=== PATIENT | male | born 1990 | race Caucasian/White ===

== ENCOUNTER 2020-12-29 09:49 | Emergency (ER) | payer SELFPAY ==
[2020-12-29 10:25] VITALS: BP 141/82; PULSE 71; RESP 18; TEMP 37.2; O2SAT 98; BMI 26.7
--- NOTE | 2020-12-29 10:43 | HMH.EDUTC ---
[facility] [place] Impression: Upper respiratory infection, viral, COVID-19 virus test result unknown Disposition: Home, Self-Care Condition on Discharge: Good Instructions: DI for Viral Upper Respiratory Infection -- Adult Additional Instructions: covid swab was sent to lab, call later today for results. self isolate until test results are known to be negative No sign of a bacterial infection. Likely viral. Viruses can take 7-14 days to run their course. Nasal saline and bulb syringe or nose Amita to remove nasal drainage to help with nasal congestion. Hard to eat, drink, sleep with nasal congestion so important to keep this cleaned out. Monitor temp. Tylenol or Motrin as needed for pain or fever Encourage fluids, water, Gatorade, Powerade, Pedialyte if infant/toddler/child Warm salt water gargles Warm fluids Sore throat lozenges Sleep elevated Humidifier/vaporizer Follow-up immediately for new or worsening symptoms or no noticeable improvement over the next 48-72 hours. Referrals: Provider,Referral, MD [Primary Care Provider] - Time of Disposition: 10:47 Medical Decision Making - Tyrell Inquiry Pt receiving controlled substance: No Orders (Tests/Meds): ORDERS Category Date Time Status Covid-19 Nasal PCR ([facility]) Routine Lab 12/29/20 10:29 [place] [facility] [place] - General Chief complaint: [facility] Stated complaint: covid exposure and sympthoms Time Seen by Provider: 12/29/20 10:43 Mode of Arrival: Ambulatory Source of Information: Patient Limitations: No Limitations - History of Present Illness Provider Complaint: 30 yr old male presents for covid test. pt states for about a week he has had a runny nose, cough,congestion and lost of taste and smell. pt states symptoms have improved but still having lost of taste and cough [facility] History - Hepatitis A Screen Attestation statement:: This patient has been screened for Hepatitis A risk factors. I have reviewed the patient's past medical history: Yes ROS Obtained: Yes Systems reviewed as appropriate & no additional complaints - Constitutional Constitutional: Reports system reviewed and no additional complaints, except as docu, Denies fever(s) - Eyes Eyes: Reports system reviewed and no additional complaints, except as docu, Denies blurry vision - ENT Ears, Nose, Mouth, and Throat: Reports system reviewed and no additional complaints, except as docu, Reports as per HPI, Reports nasal congestion, Reports nasal discharge - Cardiovascular Cardiovascular: Reports system reviewed and no additional complaints, except as docu, Denies chest pain at rest - Respiratory Respiratory: Reports system reviewed and no additional complaints, except as docu, Denies change in phlegm color, Reports cough - Gastrointestinal Gastrointestingal: Reports: system reviewed and no additional complaints, except as docu. Denies: nausea, vomiting - Genitourinary Male Genitourinary: Reports system reviewed and no additional complaints, except as docu - Musculoskeletal Musculoskeletal: Reports system reviewed and no additional complaints, except as docu, Denies joint pain - Integumentary/Breasts Skin/Breast: Reports system reviewed and no additional complaints, except as docu, Denies new lesions - Neurologic Neurologic: Reports system reviewed and no additional complaints, except as docu, Denies dizziness - Endocrine Endocrine: Reports system reviewed and no additional complaints, except as docu, Denies fatigue - Hematologic/Lymphatic Henatologic/Lymphatic: Reports system reviewed and no additional complaints, except as docu, Denies lymphadenopathy - Allergic/Immunologic Allergic/Immunologic: Reports system reviewed and no additional complaints, except as docu, Denies itchy eyes Physical Exam - General General appearance: alert, in no apparent distress - Head Head exam: atraumatic, normocephalic, normal inspection - Eye Eye exam: Present: nor
[2020-12-29 10:47] VITALS: BP 141/82; PULSE 71; RESP 18; TEMP 37.2; O2SAT 98
== END 2020-12-29 10:50 | disposition home or self-care (01) ==
PROVIDERS: Emergency Provider Nurse Practitioner Family
DX: J06.9 Acute upper respiratory infection, unspecified (principal); Z20.822 Contact with and (suspected) exposure to COVID-19
CPT/HCPCS: 99202; C9803; G0463; U0003; U0005

== ENCOUNTER 2021-02-27 11:33 | Emergency (ER) | payer SELFPAY ==
[2021-02-27 13:00] VITALS: BP 131/84; PULSE 64; RESP 18; TEMP 36.6; O2SAT 98; BMI 25.8
--- NOTE | 2021-02-27 13:41 | HMH.EDUTC ---
[facility] [place] Impression: Vertigo Sinusitis Qualifiers: Sinusitis location: unspecified location Chronicity: unspecified Qualified Code(s): J32.9 - Chronic sinusitis, unspecified Disposition: Home, Self-Care Condition on Discharge: Good Instructions: Vertigo, Sinusitis, DI for Sinusitis, DI for Vertigo, Meclizine Additional Instructions: *Monitor Temp, Over the counter Motrin or Tylenol as directed/as needed Tylenol every 4 hours and Motrin every 6 hours (as long as your family doctor has told you that you can take it) for fever or pain. and straight to ER if unable to lower temp less than 101.0 after medication given *Warm salt water gargles may help to soothe the throat *Throat Lozenges *Warm fluids like tea with honey may help to soothe the throat *Sleep elevated *Humidifier/Vaporizer *Flonase 2 sprays in each nostril daily but be aware that it may take 2-3 days before you notice improvement Slow steady movements getting up out of bed and turning over Take medication as prescribed Follow up with Family Doctor if no improvement or any woresning of symptoms Straight to ER if any life threatening symptoms Follow up IMMEDIATELY for new or worsening symptoms or no Noticeable improvement over the next 48-72 hours. 911 for difficulty breathing or swallowing Prescriptions: Meclizine HCl [Meclizine 25mg Tab] 25 mg PO Q8HP PRN #15 tab PRN Reason: Vertigo Transmission Status: Received by [facility]/pharmacy #[id number] methylPREDNISolone [Medrol 4mg tab] 4 mg PO DIRECTED #21 tab Transmission Status: Received by [facility]/pharmacy #[id number] Azithromycin [Z-Quinn 250mg Tab] 250 mg PO DIRECTED #6 tab Transmission Status: Received by [facility]/pharmacy #[id number] Referrals: Provider,Referral, MD [Primary Care Provider] - As needed Forms: Work/School Release Time of Disposition: 14:08 Medical Decision Making - Tyrell Inquiry Pt receiving controlled substance: No Tyrell was queried for this patient: No Vital Signs: 02/27/21 13:00 02/27/21 14:21 Temperature 97.8 F 97.8 F Temperature Source Oral Pulse Rate 64 Pulse Rate [Right Brachial] 64 Respiratory Rate 18 18 Blood Pressure 131/84 Blood Pressure [Right Arm] 131/84 Blood Pressure Mean [Right Arm] 99 Blood Pressure Source [Right Arm] Automatic Cuff Blood Pressure Position [Right Arm] Sitting 02 Sat by Pulse Oximetry 98 Oxygen Delivery Method Room Air Orders (Tests/Meds): ED MEDICATIONS Discontinued Medications Generic Name Dose Route Start Last Admin Trade Name Gloria PRN Reason Stop Dose Admin Meclizine HCl 25 mg 02/27/21 13:42 02/27/21 13:48 Meclizine 25mg Tablet PO 02/27/21 13:43 25 mg ONCE ONE Administration Medical Decision Narrative: Discussed with patient and recommended transfer to the ED for further work up and evaluation and patient declined transfer at this time Will try Meclizine and see if he has any relief Patient state that after medication dizziness is much improved able to stand now without feeling like he is falling Patient rechecked and states feeling much better dizziness now gone and able to move around much better [facility] [place] General Stated complaint: dizzy, lightheaded, off balance Time Seen by Provider: 02/27/21 13:41 Mode of Arrival: Ambulatory Source of Information: Patient Limitations: No Limitations Description of Symptoms (Recalled from Triage Doc. by RN): PATIENT C/O DIZZINESS, LOSS OF BALANCE, HEADACHE, AND PRESSURE BEHIND EARS THAT STARTED YESTERDAY MORNING. HEENT Symptoms (Recalled from RN notes): Yes Resp Symptoms (Recalled from RN notes): No Skin Symptoms (Recalled from RN notes): No MS Symptoms (Recalled from RN notes): No Functional Status (Recalled from RN notes): WNL - History of Present Illness Provider Complaint: Patient states that he has been having sinus pain and pressure behind his eyes, feeling of pressure in his ears like he has fluid in there States that this morning he noticed when he
[2021-02-27 14:21] VITALS: BP 131/84; PULSE 64; RESP 18; TEMP 36.6; O2SAT 98
== END 2021-02-27 14:38 | disposition home or self-care (01) ==
PROVIDERS: Emergency Provider Nurse Practitioner
DX: J32.9 Chronic sinusitis, unspecified (principal)
CPT/HCPCS: 99202; G0463

== ENCOUNTER → 2021-05-03 14:21 | Outpatient (CLI) | payer OTHER, SELFPAY ==
[2021-05-03 15:22] LABS: Basophils # 0.1 K/mm3 (0-0.2); Basophils % 0.8 % (0.1-2.0); Eosinophils % 0.3 % (0.1-12.0); Hematocrit 47.5 % (42.0-52.0); Hemoglobin 17.2 g/dL (14.1-18.0); Lymphocytes # 5.6 K/mm3 (0.7-4.5); Lymphocytes % 96.8 % (10-50); Mean Corpuscular HGB Conc 36.2 g/dL (31.8-35.4); Mean Corpuscular Hemoglobin 32.6 pg (27.0-31.2); Mean Platelet Volume 7.8 fl (7.4-10.4); Monocytes % 0.1 % (1.7-9.3); Neutrophils # 0.1 K/mm3 (1.8-7.8); Platelet Count 279 K/mm3 (142-424); Red Blood Count 5.27 M/mm3 (4.60-6.20); Red Cell Distribution Width 12.4 % (11.5-17.5); White Blood Count 5.8 K/mm3 (4.8-10.8)
[2021-05-03 15:45] LABS: MANUAL DIFFERENTIAL MANUAL DIFFERENTIAL (MANUAL DIFF)
[2021-05-03 16:41] LABS: Strep Scrn Group A (Rapid) Negative (Negative)
[2021-05-03 18:13] LABS: Lymphocytes % 21 % (10-50); Monocytes % 4 % (2-9); Neutrophils % 75 % (42-76); Platelet Estimate Normal; RBC Morphology Normal; Total Cells Counted 100
== END ==
PROVIDERS: PCP Nurse Practitioner; Visit Provider Physician Assistant
DX: Z20.822 Contact with and (suspected) exposure to COVID-19 (principal); J02.9 Acute pharyngitis, unspecified
CPT/HCPCS: 36415; 85007; 85025; 87430; C9803; U0003; U0005

== ENCOUNTER → 2021-06-04 10:04 | Outpatient (CLI) | payer OTHER, SELFPAY ==
--- NOTE | 2021-06-04 10:05 | CA_ITS ---
APPROVED REPORT EXAM: Comprehensive 2D, Doppler, and color-flow Echocardiogram [employer]: Becca Muñoz RVT Ht: 5 ft 7 in Wt: 165lbs BSA: 1.86 BP: 132/65 mmHg Indications: PRE-SYNCOPE,DIZZINESS,FATIGUE 2D Dimensions LVOT 1.91 cm (M/F) 1.5-2.5 LA Volume 22.00 mL LA Volume Index 11.82 mL/m2 (M/F) 16-34 M-Mode Dimensions RVDd 2.11 cm (0.9-2.6) LA Diam 3.06 cm (1.9-4.0) LVDd 3.77 cm (3.5-5.7) Ao Diam 2.72 cm (2.0-3.7) LVDs 2.47 cm (3.5-5.7) IVSd 0.80 cm (0.6-1.1) PWd 0.88 cm (0.6-1.1) EF (Teich) 64.30% FS 34.50% EDV (Teich) 60.80 mL TAPSE 1.58 (<1.7) ESV (Teich) 21.70 mL LV Diastology E Decel Time 180.00 (160-240 msec) E/A Ratio 1.1 MED E' 10.60 (< 7 cm/sec) E'/MED E' Ratio 6.15 (>14) LAT E' 17.70 (<10 cm/sec) E/LAT E' Ratio 3.68 (>14) Aortic Valve AO Peak GR. 4.40 mmHg Mitral Valve MV E Max Иван. 65.00 (40-130 cm/s) MV A Velocity 58.00 (40-130 cm/s) E/A Ratio 1.12 MV Decel. Time 180.00 (160-240 ms) MV PHT 53.00 ms Pulmonary Valve PV Peak Velocity 68.00 (50-150 cm/s) Left Ventricle Left atrium normal size, left ventricular normal size, there is no concentric left ventricular hypertrophy, estimated ejection fraction 55% with no regional wall motion abnormality, diastolic parameters are within normal range. Right Ventricle Right atrium and right ventricle are normal size and contractility. Aortic Valve Aortic valve is grossly normal, there is no aortic stenosis or aortic insufficiency. Mitral Valve Mitral valve is grossly normal, there is trace mitral regurgitation. Tricuspid Valve Tricuspid valve grossly normal, there is trace tricuspid regurgitation. Tricuspid regurgitation jet velocity is inadequate for calculation of the right ventricular systolic pressure. Pulmonic Valve Pulmonic valve is poorly visualized. Great Vessels Aortic root is normal size. Inferior vena cava is poorly visualized. Pericardium No significant pericardial effusion noted. Conclusion 1. Normal left ventricular size, preserved left ventricular systolic function, visually estimated ejection fraction 55% with no regional wall motion abnormality, diastolic parameters are within normal range. 2. Trace mitral and tricuspid regurgitation. 3. No significant pericardial effusion. 4. Inferior vena cava is poorly visualized. Electronically signed by : Jose Isabel MD 06/04/2021 20:32:38
--- NOTE | 2021-06-04 10:48 | CT_ITS ---
FINAL REPORT TECHNIQUE: Multiple axial CT sections were performed from the foramen magnum to the vertex. Coronal reformatted images were also obtained. Precontrast and postcontrast injection images were obtained. This study was performed with technique to keep radiation doses as low as reasonably achievable, (ALARA). Individualized dose reduction techniques using automated exposure control or adjustment of mA and/or kV according to the patient size were employed. CLINICAL HISTORY: DIZZINESS,SYNCOPAL EPISODES,PALPITATIONS FINDINGS: The ventricles are normal in size. There is no evidence of hemorrhage. No masses are identified. No extra-axial fluid collection is seen. The sinuses are normal. No osseous abnormality is seen on the bone window images. Postcontrast images demonstrate no abnormal enhancement. IMPRESSION: Unremarkable CT of the head with and without contrast. Reviewed, Interpreted and Dictated by Frank Nobles III, MD Transcribed by Светлана Winters Authenticated by Frank Nobles III, MD on 06/04/2021 12:47:41 PM [facility]
== END ==
PROVIDERS: PCP Nurse Practitioner; Visit Provider Nurse Practitioner
DX: R42 Dizziness and giddiness (principal); R55 Syncope and collapse; R00.2 Palpitations
CPT/HCPCS: 70470; 93225; 93226; 93306; Q9967

== ENCOUNTER → 2021-07-01 08:26 | Outpatient (CLI) | payer OTHER, SELFPAY ==
[2021-07-01 08:46] LABS: Coronavirus 19, PCR Not Detected (NotDetected); Influenza A, PCR Not Detected (NotDetected); Influenza B, PCR Not Detected (NotDetected)
[2021-07-01 09:29] LABS: Basophils # 0.1 K/mm3 (0-0.2); Basophils % 1.1 % (0.1-2.0); Eosinophils # 0.1 K/mm3 (0.0-0.4); Eosinophils % 1.3 % (0.1-12.0); Hematocrit 45.3 % (42.0-52.0); Hemoglobin 15.7 g/dL (14.1-18.0); Lymphocytes # 1.8 K/mm3 (0.7-4.5); Lymphocytes % 23.5 % (10-50); Mean Corpuscular HGB Conc 34.7 g/dL (31.8-35.4); Mean Corpuscular Hemoglobin 32.5 pg (27.0-31.2); Mean Corpuscular Volume 93.6 fl (80-94); Mean Platelet Volume 8.1 fl (7.4-10.4); Monocytes # 0.6 K/mm3 (0.1-1.0); Neutrophils # 5.2 K/mm3 (1.8-7.8); Platelet Count 267 K/mm3 (142-424); Red Blood Count 4.85 M/mm3 (4.60-6.20); Red Cell Distribution Width 12.8 % (11.5-17.5); White Blood Count 7.8 K/mm3 (4.8-10.8)
[2021-07-01 10:09] LABS: Alanine Aminotransferase 30 U/L (12-78); Albumin Level 4.5 g/dl (3.5-5.0); Alkaline Phosphatase 41 U/L (38-126); Aspartate Amino Transferase 26 U/L (17-59); Bilirubin,Indirect 1.1 mg/dL (0.0-0.9); Bilirubin,Total 1.1 mg/dl (0.2-1.3); Bilirubin,Unconjugated 1.2 mg/dL (0.0-1.1); Cholesterol 305 mg/dl (140-200); HDL Cholesterol 34 mg/dl (40-60); Total Protein,Serum 7.1 g/dl (6.3-8.2); Triglycerides 139 mg/dl (30-150); VLDL Cholesterol 28 mg/dL (0-40)
[2021-07-01 10:11] LABS: Anion Gap 10.2 mEq/L (5-15); Blood Urea Nitrogen 16 mg/dl (9-20); Calcium 9.7 mg/dl (8.4-10.2); Carbon Dioxide 33 mmol/L (22.0-30.0); Chloride 101 mmol/L (98-107); Estimated Glomerular Filt Rate 115 ml/min (>60); GFR (African American) 139 ML/MIN (>60); Glucose 61 mg/dl (74-100); Potassium 4.2 mmoL/L (3.5-5.1); Sodium 140 mmol/L (136-145)
== END ==
PROVIDERS: Internal Medicine; Visit Provider Physician Assistant
DX: Z01.812 Encounter for preprocedural laboratory examination (principal); Z11.52 Encounter for screening for COVID-19; R06.00 Dyspnea, unspecified; R42 Dizziness and giddiness; R55 Syncope and collapse; I20.0 Unstable angina; I49.3 Ventricular premature depolarization; R00.0 Tachycardia, unspecified; E78.5 Hyperlipidemia, unspecified; E78.2 Mixed hyperlipidemia
CPT/HCPCS: 36415; 80048; 80061; 80076; 85025; C9803; U0003; U0005

== ENCOUNTER 2021-07-02 07:57 | Day surgery (SDC) | payer OTHER, SELFPAY ==
[2021-07-02] VITALS (11 sets, daily range): BP systolic 94–126; BP diastolic 47–80; PULSE 56–80; RESP 18; TEMP 36.9; O2SAT 95–98; BMI 25.3
--- NOTE | 2021-07-02 07:10 | IR_ITS ---
APPROVED REPORT Patient Location: Outpatient Fur Cleaner: SUREKHA Narayanan RT (R) PROCEDURES Left heart catheterization Left ventriculogram Selective coronary angiogram INDICATION Crescendo angina, Familiar hyperlipidemia Informed consent was obtained prior to the procedure. COMPLICATIONS None Estimated Blood Loss: Less than 10 mls TECHNIQUE One percent lidocaine used to anesthetize the right anterior aspect of the wrist. The right radial artery was accessed via the Seldinger technique. A 6 Persian sheath was placed in the right radial artery. 2.5 mg of verapamil, 800 mcg of nitroglycerin, 1mg Lidocaine and 5000 U Heparin were given through the arterial sheath. The papa catheter was also used to perform left heart catheterization, left ventriculogram and selective coronary angiogram. At the end of the procedure the sheath was removed good hemostasis was achieved using Traclet band, patient was transferred to the postop holding area in stable condition. ANGIOGRAPHIC RESULTS The left main artery Normal The left anterior descending artery Normal The circumflex artery Normal The right coronary artery Dominant normal The DUPREE ventriculogram reveals Normal 65% The left ventricular end-diastolic pressure 10 mmHg IMPRESSION Normal coronary arteries Normal ejection fraction Normal left ventricular end-diastolic pressure PLAN 1. Treatment and evaluation of noncardiac symptoms 2. Aggressive treatment of familial hyperlipidemia Electronically signed by : Flash Claudio MD 07/02/2021 12:48:03
== END 2021-07-02 15:15 | disposition home or self-care (01) ==
LOC: CATHLAB 07:59
PROVIDERS: PCP Nurse Practitioner; Visit Provider Internal Medicine
DX: R07.9 Chest pain, unspecified (principal); I20.0 Unstable angina; I49.3 Ventricular premature depolarization; R06.00 Dyspnea, unspecified; E78.2 Mixed hyperlipidemia; R55 Syncope and collapse
CPT/HCPCS: 93458; 99152; C1725; C1769; J1644; Q9967

== ENCOUNTER → 2021-07-10 10:55 | Outpatient (CLI) | payer OTHER, SELFPAY ==
--- NOTE | 2021-07-10 11:02 | CA_ITS ---
FINAL REPORT CLINICAL HISTORY: PT HAD CATH 07/02/21 WITH RT RADIAL ACCESS,PT C/O PAIN IN WRIST RADIATING INTO HAND AND UP FOREARM,MILD BRUISING FINDINGS: DUPLEX SCAN UPPER EXT ARTERIES UNILA Duplex scan of the right wrist arteries was performed. Thrombus is seen right distal radial artery. No evidence of pseudoaneurysm or AV fistula. IMPRESSION: Thrombus seen right distal radial artery. Preliminary results were called to IVÁN Trujillo in cardiology clinic by the agricultural research technician at the time of imaging. Reviewed, Interpreted and Dictated by Frank Nobles III, MD Transcribed by Valerie Gil Authenticated by Frank Nobles III, MD on 07/10/2021 02:17:21 PM [facility]
== END ==
PROVIDERS: PCP Internal Medicine; Visit Provider Internal Medicine
DX: M25.531 Pain in right wrist (principal)
CPT/HCPCS: 93931

== ENCOUNTER → 2021-12-31 11:40 | Outpatient (CLI) | payer OTHER, SELFPAY ==
[2021-12-31 19:50] LABS: Alanine Aminotransferase 131 U/L (12-78); Albumin Level 4.9 g/dl (3.5-5.0); Albumin/Globulin Ratio 1.7 (1.1-1.8); Alkaline Phosphatase 67 U/L (38-126); Anion Gap 16.6 mEq/L (5-15); Aspartate Amino Transferase 68 U/L (17-59); Bilirubin,Total 1.5 mg/dl (0.2-1.3); Blood Urea Nitrogen 17 mg/dl (9-20); Calcium 10.4 mg/dl (8.4-10.2); Carbon Dioxide 30 mmol/L (22.0-30.0); Chloride 98 mmol/L (98-107); Estimated Glomerular Filt Rate 100 ml/min (>60); GFR (African American) 121 ML/MIN (>60); Globulin 2.9 g/dL (1.3-3.2); Glucose 72 mg/dl (74-100); Potassium 4.6 mmoL/L (3.5-5.1); Sodium 140 mmol/L (136-145); Total Protein,Serum 7.8 g/dl (6.3-8.2)
[2021-12-31 20:18] LABS: Thyroid Stimulating Hormone 0.98 uIU/mL (0.465-4.68)
== END ==
PROVIDERS: PCP Family Medicine; Visit Provider Family Medicine
DX: F32.A Depression, unspecified (principal)
CPT/HCPCS: 80053; 84443

== ENCOUNTER → 2023-01-29 08:11 | Outpatient (CLI) | payer BC, SELFPAY ==
[2023-01-29 18:21] LABS: Alanine Aminotransferase 39 U/L (12-78); Albumin Level 4.5 g/dl (3.5-5.0); Albumin/Globulin Ratio 1.5 (1.1-1.8); Alkaline Phosphatase 55 U/L (38-126); Aspartate Amino Transferase 49 U/L (17-59); Bilirubin,Total 1.2 mg/dl (0.2-1.3); Blood Urea Nitrogen 15 mg/dl (9-20); Carbon Dioxide 28 mmol/L (22.0-30.0); Chloride 101 mmol/L (98-107); Estimated Glomerular Filt Rate 99 ml/min (>60); GFR (African American) 120 ML/MIN (>60); Glucose 93 mg/dl (74-100); HDL Cholesterol 39 mg/dl (40-60); Potassium 4.3 mmoL/L (3.5-5.1); Total Protein,Serum 7.5 g/dl (6.3-8.2); Triglycerides 121 mg/dl (30-150); VLDL Cholesterol 24 mg/dL (0-40)
[2023-01-29 18:32] LABS: Direct LDL Cholesterol 306.13 mg/dL (100-129)
[2023-01-29 18:38] LABS: 25-OH Vitamin D, Total 28.7 ng/mL (30-100)
[2023-01-29 18:43] LABS: Chol/HDL Ratio 10.5 (1-3.5); Cholesterol 408 mg/dl (140-200)
[2023-01-29 18:52] LABS: Thyroid Stimulating Hormone 0.83 uIU/mL (0.465-4.68)
[2023-01-29 19:05] LABS: Basophils # 0.1 K/mm3 (0-0.2); Eosinophils # 0.1 K/mm3 (0.0-0.4); Eosinophils % 1.8 % (0.1-12.0); Hematocrit 48.5 % (42.0-52.0); Hemoglobin 16.5 g/dL (14.1-18.0); Lymphocytes # 1.9 K/mm3 (0.7-4.5); Lymphocytes % 33.9 % (10-50); Mean Corpuscular HGB Conc 34.1 g/dL (31.8-35.4); Mean Corpuscular Hemoglobin 31.5 pg (27.0-31.2); Mean Corpuscular Volume 92.3 fl (80-94); Mean Platelet Volume 9.4 fl (7.4-10.4); Monocytes # 0.4 K/mm3 (0.1-1.0); Monocytes % 6.7 % (1.7-9.3); Neutrophils # 3.1 K/mm3 (1.8-7.8); Neutrophils % 56.5 % (37.0-80.0); Platelet Count 237 K/mm3 (142-424); Red Blood Count 5.25 M/mm3 (4.60-6.20); Red Cell Distribution Width 12.6 % (11.5-17.5); White Blood Count 5.5 K/mm3 (4.8-10.8)
[2023-01-29 19:18] LABS: Hemoglobin A1C 4.9 % (4.0-6.0)
[2023-01-29 19:28] LABS: Anion Gap 14.3 mEq/L (5-15); Sodium 139 mmol/L (136-145)
== END ==
LOC: LAB.DROPOF 01-30 08:13
PROVIDERS: PCP Nurse Practitioner; Visit Provider Nurse Practitioner
DX: E78.5 Hyperlipidemia, unspecified (principal); F32.A Depression, unspecified; F43.21 Adjustment disorder with depressed mood; E55.9 Vitamin D deficiency, unspecified
CPT/HCPCS: 80053; 80061; 82306; 83036; 84443; 85025

== ENCOUNTER → 2023-02-20 15:08 | Outpatient (CLI) | payer BC, SELFPAY ==
--- NOTE | 2023-02-20 15:14 | XR_ITS ---
FINAL REPORT CLINICAL HISTORY: knee pain. no trauma FINDINGS: RIGHT KNEE There is no acute fracture or dislocation. The joint spaces are intact. There is no soft tissue abnormality. IMPRESSION: No acute fracture Reviewed, Interpreted and Dictated by Tho Vergara MD Transcribed by Wanda Canela Authenticated and [facility]
--- NOTE | 2023-02-20 15:14 | XR_ITS ---
FINAL REPORT CLINICAL HISTORY: Left knee pain. no trauma FINDINGS: LEFT KNEE There is no acute fracture or dislocation. The joint spaces are intact. There is no soft tissue abnormality. IMPRESSION: No acute fracture. Reviewed, Interpreted and Dictated by hTo Vergara MD Transcribed by Wanda Canela Authenticated and [facility]
== END ==
PROVIDERS: PCP Nurse Practitioner; Visit Provider Family Medicine
DX: M25.561 Pain in right knee (principal); M25.562 Pain in left knee
CPT/HCPCS: 73560

== ENCOUNTER 2023-03-05 10:11 | Outpatient (CLI) | payer BC, SELFPAY ==
[2023-03-05 11:06] LABS: C-Reactive Protein 0.5 mg/L (0-4); Uric Acid 4.3 mg/dl (3.5-8.5)
[2023-03-05 11:17] LABS: Erythrocyte Sedimentation Rate 13 mm/hr (0-15)
[2023-03-06 06:09] LABS: RA Latex Turbid. <10.0 IU/mL (<14.0)
[2023-03-06 11:42] LABS: Anti-Centromere B Antibodies <0.2 AI (0.0-0.9); Anti-DNA (DS) Ab Qn 2 IU/mL (0-9); Anti-Jo-1 <0.2 AI (0.0-0.9); Anti-Smith Antibody <0.2 AI (0.0-0.9); Antichromatin Antibodies <0.2 AI (0.0-0.9); Antiscleroderma-70 Antibodies <0.2 AI (0.0-0.9); RNP Antibodies <0.2 AI (0.0-0.9); Sjogren's Anti-SS-A <0.2 AI (0.0-0.9); Sjogren's Anti-SS-B <0.2 AI (0.0-0.9)
[2023-03-06 13:12] LABS: Anti-Cyclic Citrullinated Pept 8 units (0-19)
[2023-03-07 14:35] LABS: Lupus Reflex Interpretation Comment: (.); PTT-LA 34.2 sec (0.0-43.5); dRVVT 35.7 sec (0.0-47.0)
== END 2023-03-05 23:59 ==
LOC: LAB 10:12
PROVIDERS: PCP Nurse Practitioner; Visit Provider Family Medicine
DX: M25.562 Pain in left knee (principal); M25.462 Effusion, left knee; M25.50 Pain in unspecified joint
CPT/HCPCS: 36415; 84550; 85613; 85651; 86140; 86200; 86225; 86235; 86431

== ENCOUNTER 2023-04-27 15:06 | Outpatient (CLI) | payer BC, SELFPAY ==
[2023-04-27 18:22] LABS: Coronavirus 19, PCR Not Detected (NotDetected); Influenza A, PCR Not Detected (NotDetected); Influenza B, PCR Not Detected (NotDetected)
== END 2023-04-27 23:59 ==
LOC: LAB.DROPOF 04-28 15:07
PROVIDERS: PCP Nurse Practitioner; Visit Provider Nurse Practitioner
DX: J06.9 Acute upper respiratory infection, unspecified (principal); R05.8 Other specified cough; R53.82 Chronic fatigue, unspecified
CPT/HCPCS: 87636